=== PATIENT | male | born 1950 | race Caucasian/White ===

== ENCOUNTER → 2020-11-14 08:31 | Outpatient (CLI) | payer MEDICARE | END | disposition home or self-care (01) | LOC: D.MRI 08:31 | PROVIDERS: ATTEND Clinical Nurse Specialist Family Health | DX: M54.12 Radiculopathy, cervical region (principal) ==

== ENCOUNTER 2021-01-12 05:58 | Day surgery (SDC) | payer MEDICARE, BC ==
[2021-01-11 11:16] LABS: CALC OSMOLALITY 279 mosm/kg (275-300); CALCIUM 9.7 mg/dL (8.5-10.1); CARBON DIOXIDE 26.4 mmol/L (21.0-32.0); CHLORIDE - SERUM 104 mmol/L (98-107); GLUCOSE 144 mg/dL (74-106); POTASSIUM - SERUM 4.5 mmol/L (3.5-5.1); SODIUM 138 mmol/L (136-145); UREA NITROGEN 14 mg/dL (7-18); eGFR NON AFRICAN AMERICAN 79 mL/min (90-120)
[2021-01-11 11:21] LABS: BASOPHILS 0.3 % (0-2); HEMATOCRIT 40.2 % (42.0-54.0); HEMOGLOBIN 13.2 g/dL (13.5-17.5); IMMATURE GRANULOCYTES 0.2 % (0-5); LYMPHOCYTE ABS# 1.65 10x3/uL (1.32-3.57); MCH 28.8 pg (26.0-34.0); MCHC 32.8 g/dL (31.0-37.0); MCV 87.6 fL (80.0-100.0); MEAN PLATELET VOLUME 10.5 fL (7.4-10.4); NEUTROPHIL ABS# 3.81 10x3/uL (1.78-5.38); NEUTROPHILS 62.5 % (40-80); PLATELET COUNT 275 10x3/uL (130-400); RBC 4.59 10x6/uL (4.20-6.10); RDW 14.1 % (11.5-14.5); WBC 6.1 10x3/uL (4.8-10.8)
[2021-01-11 12:10] LABS: APTT 26.8 SECONDS (22.8-39.4)
[2021-01-11 12:44] LABS: INR 1.08 (0.85-1.17)
[~2021-01-12] VITALS: Ht 182.9 cm; Wt 90.7 kg
[~2021-01-12 05:58] MED LIST: ACETAMINOPHEN325 MG; BAYER CHEWABLE81 MG PO; BETAPACE 80 MG80 MG; CRESTOR20 MG PO; ELIQUIS5 MG PO; GLYBURIDE5 M1 PO; JANUMET 50-1,01 EAC1 PO; ULTRAM50 MG PO; VIBRAMYCIN50 MG
[2021-01-12 06:35] VITALS: BP 140/81; Ht 182.9 cm; Wt 90.7 kg
--- NOTE | 2021-01-12 10:30 | NUR ---
1025 DROP IN B/P 84/49. BS 175 DENIES PAIN OR ANY SYMPTOMS AT THIS TIME.
--- NOTE | 2021-01-12 15:35 | OP ---
PATIENT NAME: RUMA WYNNE MEDICAL RECORD: [id number] :51 LOCATION:[facility] ADMISSION DATE: SURGEON: JUVENAL ORTEGA DO DATE OF OPERATION: 01/12/2021 PROCEDURE PERFORMED: Left endoscopic carpal tunnel release and left cubital tunnel release. PREOPERATIVE DIAGNOSES: Left carpal tunnel syndrome, left cubital tunnel syndrome. POSTOPERATIVE DIAGNOSES: Left carpal tunnel syndrome, left cubital tunnel syndrome. INDICATIONS: Mr. Wynne is a 70-year-old male who had a left carpal and cubital tunnel symptoms for a long time to the point where he almost could not use his hand. He had nerve conduction showing the above findings and it was severe delay in the conduction. I informed him and his of the risks of this including infection, bleeding, damage to the median nerve and ulnar nerve, continued pain, not gaining sensation back and motor as well, blood clots, need for further surgery and even , and then he signed the consent. SURGEON: Juvenal Ortega DO DESCRIPTION OF PROCEDURE: The patient was taken to the operative suite, laid in supine position, given general anesthetic and LMA was placed. He was given 2 grams of Ancef preoperatively, sedated and LMA was placed. The left upper extremity was prepped and draped in sterile fashion. Timeout was performed. Everyone was in agreeance with the correct site, side, patient and procedure. I then exsanguinated the left upper extremity with an Esmarch, tourniquet was inflated to 250 mmHg, it was up for 14 minutes. I then addressed the carpal tunnel first, made a small incision centered over the palmaris longus and made an incision through the skin and then blunt dissection down to the median nerve. I then released the fascia on top of the nerve from distal to proximal, made an incision, then went into the carpal tunnel with the dilators and put in the 2.7 sheath, brought in the camera, ensured there was no transligamentous nerve and that I was cutting only the transverse carpal ligament using a probe and a rasp to clean it off. I then brought in a blade, raised it up and transected the transverse carpal ligament fat, then herniated down into the tunnel. I then removed the instruments and used a long end of the Ragnell scissors to make sure there was no remaining fibers of the transverse carpal ligament and they were not. I then addressed the cubital tunnel, made an incision between the medial epicondyle on the olecranon and made careful dissection down to the ulnar nerve, released it fully proximally and distally. We then let the tourniquet down. Any bleeding was coagulated with a bipolar. I then injected 0.25% Marcaine with epinephrine, approximately 10 mL in each site. Then Duane Stoner, certified registered nurse practitioner closed the carpal tunnel site with 5-0 Monocryl inverted interrupted fashion and placed Steri-Strips and 4-0 Monocryl inverted interrupted fashion on the cubital tunnel, placed Steri-Strips on it. He was then dressed with a soft dressing, awakened and taken to recovery in stable condition. ESTIMATED BLOOD LOSS: Minimal. COMPLICATIONS: None. OPERATIVE REPORT [id number] RUMA WYNNE TOURNIQUET TIME: 14 minutes. TRANSINT:[id number] Voice Confirmation ID: [id number] DOCUMENT ID: [id number] JUVENAL ORTEGA DO at 1535 CC: [id number] DICTATION DATE: 01/12/21 09 HOUSE DETECTIVE: 01/12/21 1312 [facility] 01/12/21 [facility] [address] [place] [address]
== END 2021-01-12 11:30 | disposition home or self-care (01) ==
LOC: D.OPS 05:58
PROVIDERS: Anesthesiology; ATTEND Orthopaedic Surgery
DX: G56.02 Carpal tunnel syndrome, left upper limb (principal); G56.22 Lesion of ulnar nerve, left upper limb; G56.03 Carpal tunnel syndrome, bilateral upper limbs; M79.641 Pain in right hand; M79.642 Pain in left hand; M54.12 Radiculopathy, cervical region; M48.02 Spinal stenosis, cervical region

== ENCOUNTER 2021-03-09 10:05 | Day surgery (SDC) | payer MEDICARE, BC ==
[2021-03-05 15:40] LABS: BASOPHILS 0.6 % (0-2); EOSINOPHILS 1.6 % (0-7); HEMATOCRIT 37.7 % (42.0-54.0); HEMOGLOBIN 12.5 g/dL (13.5-17.5); LYMPHOCYTES 28.5 % (15-50); MCH 29.1 pg (26.0-34.0); MCHC 33.1 g/dL (31.0-37.0); MEAN PLATELET VOLUME 8.2 fL (7.4-10.4); MONOCYTES 9.6 % (2-11); NEUTROPHILS 59.7 % (40-80); PLATELET COUNT 225 10x3/uL (130-400); RBC 4.28 10x6/uL (4.20-6.10); RDW 14.3 % (11.5-14.5); WBC 5.6 10x3/uL (4.8-10.8)
[2021-03-05 15:48] LABS: ANION GAP 10.5 mmol/L (8-16); CALCIUM 9.1 mg/dL (8.5-10.1); CREATININE - SERUM 1.2 mg/dL (0.6-1.3); POTASSIUM - SERUM 4.5 mmol/L (3.5-5.1)
[~2021-03-09] VITALS: Ht 182.9 cm; Wt 90.7 kg
[~2021-03-09 10:05] MED LIST changes: +METOPROLOL TART50 MG PO
[2021-03-09 12:18] VITALS: BP 166/89; Ht 182.9 cm; Wt 90.7 kg
--- NOTE | 2021-03-09 17:21 | NUR ---
1530 INSTRUCTIONS GIVEN AND IV REMOVED. DRESSING CDI. 1550 PT D/C HOME
--- NOTE | 2021-03-10 08:20 | OP ---
PATIENT NAME: RUMA WYNNE MEDICAL RECORD: [id number] :52 LOCATION:[facility] ADMISSION DATE: SURGEON: JUVENAL ORTEGA, DATE OF OPERATION: 03/09/2021 PROCEDURE PERFORMED: A right endoscopic carpal tunnel release. PREOPERATIVE DIAGNOSIS: Right carpal tunnel syndrome. POSTOPERATIVE DIAGNOSIS: Right carpal tunnel syndrome. INDICATIONS: The patient is a 70-year-old male who has had a right carpal tunnel syndrome for quite some time. He had a nerve conduction study confirming diagnosis of severe carpal tunnel. I informed her of the risks of this including damage to the median nerve, continued pain, need for further surgery, infection, bleeding, and he signed a consent. SURGEON: Juvenal Ortega D.O. DESCRIPTION OF PROCEDURE: The patient was taken to the operative suite, laid in supine position, given general anesthetic and LMA was placed. He was given 2 grams Ancef. The right upper extremity was then prepped and draped in sterile fashion. A timeout was performed. Everyone was in agreement with the correct side, site, patient, and procedure. We then began by exsanguinating the right upper extremity with an Esmarch, tourniquet was inflated to 250 mmHg, was over 12 minutes. I then made an incision centered over the palmaris longus tendon. I made careful dissection down to the median nerve. Then released forearm from distal to proximal over the median nerve in the incision. I then went to the carpal tunnel and is quite tight. I got the sheath in protecting the nerve, we then brought a rasp and the blade to clean out the transverse carpal ligament and did not see any transligamentous was brought to the blade and transected it. I then used a long end of the Ragnell and scissors and saw that there still was not quite released. I then put the sheath back and protecting the nerve involvement blade and released the rest of the transverse carpal ligament. I then injected with 0.25% Marcaine with epinephrine around the side. Tourniquet was let down at 12 minutes. He was closed by Duane Stoner, certified surgical assistant merchandiser with 5-0 Monocryl inverted fashion and placed Steri-Strips, Adaptic, 4 x 4, Kerlix, and Coban lightly wrapped around the hand and wrist. He was awakened and taken to recovery in stable condition. BLOOD LOSS: Minimal. COMPLICATIONS: None. TRANSINT:[id number] Voice Confirmation ID: [id number] DOCUMENT ID: [id number] JUVENAL ORTEGA DO at 0820 CC: [id number] DICTATION DATE: 03/09/[address] SUPERINTENDENT: 03/09/21 2237 [facility] [place] 03/09/21 [id number] [place] [address]
== END 2021-03-09 15:50 | disposition home or self-care (01) ==
LOC: D.OPS 10:05
PROVIDERS: Anesthesiology; ATTEND Orthopaedic Surgery
DX: G56.01 Carpal tunnel syndrome, right upper limb (principal)